=== PATIENT | female | born 1960 | race Caucasian/White ===

== ENCOUNTER 2024-04-09 10:34 | Emergency (ER) | payer MEDICARE, OTHER, SELFPAY ==
[2024-04-09 10:46] VITALS: BP 145/81
--- NOTE | 2024-04-09 11:33 | ED.GENMED ---
History of Present Illness
General
Chief Complaint: Musculo-Skeletal Complaint
Time Seen by Provider: 04/09/24 10:57
History of Present Illness
History of Present Illness:
63-year-old female presents to the emergency department for evaluation of mild redness and pain to the right lateral ankle that began yesterday. Denies any known injuries. She is able to ambulate with significant pain. Denies any fevers or
chills. No prior history of gout
Past History
Past History
ED Past Medical History: CAD, HTN, Hypercholesterolemia, NIDDM, CO (X 2), Psychiatric (ADHD, maintained on Adderall 20 mg twice a day) and Other (Osteoarthritis)
ED Past Surgical History: Cardiac (Stents x 2), Gynecological (Tubal ligationm Hysterectomy) and Orthopedic (Knee arthroscopy, tennis elbow surgery, Left shoulder surgery)
Social History
Tobacco: Former smoker (Quit almost 30 years ago)
Alcohol: Occasional
Personal:
Living: with family
Employment: Employed
Family History
Family History: CAD; Negative Early CAD
Review of Systems
Review of Systems
Allergies reviewed?: Yes
All Other Systems: ROS reviewed and negative except as documented in HPI and ROS
Phy Exam
Physical Exam
Physical Exam:
GEN: Well appearing, NAD, WDWN
HEENT: Oral mucosa moist, no scleral icterus
Cardiac: Regular rate
Lung: No respiratory distress, no tachypnea
MSK: No gross deformity or injuries. Mild redness overlying the right lateral malleolus with lymphangitic streaking extending approximately 4 cm proximally
Skin: Good color, no pallor or jaundice, no rashes
Neuro: AO x3, moves all extremities freely
Psych: Calm, cooperative
Course
Orders/Labs/Results
Orders:
Orders
04/09/24 10:49
Ankle, Right 3 view CR [CR Ankle - Right Min 3 Views *] Urgent
Comment:
Reason For Exam: no injury pain
Vital Signs
Initial and Last Documented VS:
Initial Vital Signs
Temp Pulse Resp BP Pulse Ox
98.6 F 79 16 145/81 99
04/09/24 10:46 04/09/24 10:46 04/09/24 10:46 04/09/24 10:46 04/09/24 10:46
Last Documented Vital Signs
Temp Pulse Resp BP Pulse Ox
98.6 F 79 16 145/81 99
04/09/24 10:46 04/09/24 10:46 04/09/24 10:46 04/09/24 10:46 04/09/24 10:46
MDM/Problems Addressed
MDM/Problems Addressed:
No joint effusion to suggest gout. Likely developing cellulitis. X-rays are unremarkable. Will cover with cephalexin
*Critical Care Note
Total Time (30-74mins, 75-104mins- exclusive of procedures): Not Applicable
ED Attending Note
-
Portions of this chart may have been created with voice recognition software.� Occasional wrong word or��sound alike� substitutions may have occurred due to the inherent limitations of voice recognition software.
Discharge Plan
Departure
Patient Disposition: Home (Routine Discharge)
Date of Disposition: 04/09/24
Time of Disposition: 11:36
Patient with high blood pressure during this ER visit?: No
Discharge Problem:
Cellulitis of right ankle
Instructions: Cellulitis (Skin Infection), Adult ED
Prescriptions:
New
cephalexin 500 mg capsule
500 mg PO Q8H 5 Days Qty: 15 0RF
No Action
carvedilol [Coreg] 3.125 MG tablet
3.125 mg PO BID
aspirin [Aspir-Low] 81 MG tablet,delayed release (DR/EC)
81 mg PO HS
escitalopram oxalate 20 MG tablet
20 mg PO HS
atorvastatin 80 MG tablet
80 mg PO QPM Qty: 90 10RF
clopidogrel 75 MG tablet
75 mg PO DAILY Qty: 90 10RF
metformin 500 MG tablet
500 mg PO BID Qty: 0 0RF
Rx Instructions:
Resume Thu 10 evening
pantoprazole [Protonix] 40 mg tablet,delayed release (DR/EC)
40 mg PO DAILY Qty: 10 0RF
Referrals:
Torin Sullivan I., DO [Family Provider] -
Interventions
Interventions:
*Risk Screen - Suicide Last Done: 04/09/24 11:30
*General Assessment Last Done: 04/09/24 11:30
*Neglect/Abuse Screening Last Done: 04/09/24 11:30
ED- Fall Risk Assessment Last Done: 04/09/24 11:30
*ED COVID-19 Vaccine History Last Done: 04/09/24 11:30
*Nursing Disposition Last Done: 04/09/24 11:44
ED-Musculoskeletal Assessment Last Done: 04/09/24 11:30
Discharge Date and Time
Discharge Date/Time: 04/09/24 11:44
Print Language: GERMAN
== END 2024-04-09 11:44 | disposition home or self-care (01) ==
LOC: EMR 10:34
PROVIDERS: EMERGENCY PHYSICIAN Emergency Medicine; FAMILY PHYSICIAN Internal Medicine
DX: L03.115 Cellulitis of right lower limb (principal); I25.10 Atherosclerotic heart disease of native coronary artery without angina pectoris; I10 Essential (primary) hypertension; E78.00 Pure hypercholesterolemia, unspecified; E11.9 Type 2 diabetes mellitus without complications; I25.2 Old myocardial infarction; F90.9 Attention-deficit hyperactivity disorder, unspecified type; M19.90 Unspecified osteoarthritis, unspecified site; Z87.891 Personal history of nicotine dependence; Z82.49 Family history of ischemic heart disease and other diseases of the circulatory system; Z90.710 Acquired absence of both cervix and uterus; Z95.5 Presence of coronary angioplasty implant and graft
CPT/HCPCS: 99283; 73610